=== PATIENT | male | born 1980 | race Two or more races ===

== ENCOUNTER 2025-06-13 16:17 | Outpatient (CLI) | payer OTHER, SELFPAY ==
--- NOTE | ~2025-06-13 | XR_ITS ---
[id number] Indication: M54.2 - Cervicalgia Comparison: None Findings: The vertebral heights are intact. No fracture or subluxation. The disc heights are intact. Soft tissues unremarkable Impression: No acute abnormality. Reviewed, dictated and finalized at location P. Impression: No acute abnormality.
== END 2025-06-13 16:18 | disposition home or self-care (01) ==
LOC: MICIMG 16:18
PROVIDERS: PCP Family Medicine; Visit Provider Family Medicine
DX: M54.2 Cervicalgia (principal)
CPT/HCPCS: 72040